=== PATIENT | male | born 1980 | race African-American/Black ===

== ENCOUNTER 2020-06-08 23:41 | Emergency (ER) | payer OTHER ==
[2020-06-09 00:32] VITALS: PULSE 85; TEMP 98.4; BMI 27.4
[2020-06-09 03:07] VITALS: BP 136/80
== END 2020-06-09 03:50 | disposition left against medical advice (07) ==
LOC: JER 23:41
DX: F10.129 Alcohol abuse with intoxication, unspecified (principal)
CPT/HCPCS: 99281-25